=== PATIENT | male | born 1940 | race Caucasian/White ===

== ENCOUNTER → 2021-03-17 14:36 | Outpatient (BNVA) | payer OTHER, SELFPAY | PROVIDERS: Visit Provider Nurse Practitioner | DX: F03.90 Unspecified dementia, unspecified severity, without behavioral disturbance, psychotic disturbance, mood disturbance, and anxiety (principal) | CPT/HCPCS: 99203; 99204 ==

== ENCOUNTER 2022-06-11 20:00 | Outpatient (CLI) | payer OTHER, SELFPAY | END 2022-06-11 20:01 | disposition home or self-care (01) | LOC: SLEEP 06-12 08:47 | PROVIDERS: Visit Provider Family Medicine | DX: G47.33 Obstructive sleep apnea (adult) (pediatric) (principal) | CPT/HCPCS: 95811 ==